=== PATIENT | female | born 1945 | race Caucasian/White ===

== ENCOUNTER → 2020-03-12 | Outpatient (CLI) | payer MEDICARE | LOC: CARD 11:00 | PROVIDERS: ATTEND Family Medicine | DX: I51.7 Cardiomegaly (principal) | CPT/HCPCS: 93306 ==

== ENCOUNTER → 2021-04-04 | Outpatient (CLI) | payer MEDICARE ==
[~2021-04-04] MED LIST: CATHETER FLUSH 10 ML SYR IV PRN; HOLD METFORMIN - RECEIVED CONTRAST 20 ML VIAL IV SCH; IOHEXOL 350 MG/ML 100 ML (OMNIPAQUE 350) VIAL IV ONE; NS 100 ML (IVPB) BAG IV ONE
[2021-04-04 09:36] LABS: CREATININE SERUM 0.65 MG/DL (0.60-1.30); POTASSIUM 4.3 MMOL/L (3.6-5.0)
[2021-04-04 09:37] LABS: ALBUMIN 3.7 GM/DL (3.2-4.5); BILIRUBIN,TOTAL 0.7 MG/DL (0.1-1.0); TOTAL PROTEIN 6.3 GM/DL (6.4-8.2)
--- NOTE | 2021-04-04 12:52 | Diagnostic Imaging Report ---
EXAMINATION: CT chest with intravenous contrast. TECHNIQUE: Multiple contiguous axial images were obtained through the chest after the uneventful administration of intravenous contrast. All CT scans use one or more of the following dose optimizing techniques: automated exposure control, MA and/or KvP adjustment based on patient size and exam type or iterative reconstruction. HISTORY: Abnormal chest radiograph. COMPARISON: None available. FINDINGS: There is no edema or pneumonia. No pleural effusion. No pneumothorax. There is a 2.0 x 2.0 cm left lower lobe pulmonary nodule. There is no axillary or supraclavicular lymphadenopathy. There is a 1.2 cm left hilar lymph node. Heart size is normal. There are severe coronary artery calcifications. No pericardial effusion. Aorta is normal in caliber. Limited views of the upper abdomen are unremarkable. There are no suspicious osseus lesions. IMPRESSION: Left lower lobe 2.0 cm nodule with an enlarged left hilar lymph node. Findings highly concerning for lung malignancy. Biopsy or PET/CT is recommended. Dictated by: Dictated on workstation # [id number]
== END ==
LOC: RAD FS 08:45
PROVIDERS: ATTEND Family Medicine
DX: R91.1 Solitary pulmonary nodule (principal); R59.0 Localized enlarged lymph nodes
CPT/HCPCS: 36415; 71260; 80053

== ENCOUNTER → 2021-05-03 | Outpatient (CLI) | payer MEDICARE ==
--- NOTE | 2021-05-03 16:56 | Diagnostic Imaging Report ---
INDICATION: Lung nodule. Serum blood glucose levels at time of injection are 102 mg/dL. Patient was administered 13.4 mCi F-18 FDG intravenously in the right wrist and whole body PET imaging was performed. Noncontrast CT was also performed for attenuation correction and anatomic correlation. No prior PET/CT studies are available for comparison. Comparison is made with a recent CT chest from 04/04/2021. There is symmetric activity throughout the brain. Soft tissues of the neck are unremarkable. Recently noted soft tissue nodule in the left lower lobe does show low level activity at approximately 2.6 SUV max. In addition, the left hilar lymph nodes described previously show very low level activity as well with SUV max of approximately 2.6. No other regions of thoracic uptake are identified. There is physiologic activity throughout the gastrointestinal and genitourinary tracts of the abdomen and pelvis. Bilateral lower extremities are unremarkable. IMPRESSION: Whole-body PET/CT study does show very low level activity within the mass in the left lower lobe as well as left hilar lymph nodes described on a recent CT chest study. Imaging features still remain somewhat concerning. This could potentially be on an infectious or inflammatory basis. Perhaps the patient could be started on an antibiotic course and a repeat chest CT in a short interval could be performed in approximately 3-4 weeks to evaluate for potential resolution of left lower lobe opacity. If this persists, consideration could be given to percutaneous biopsy. Dictated by: Dictated on workstation # [id number]
== END ==
LOC: RAD 12:45
PROVIDERS: ATTEND Family Medicine
DX: E04.1 Nontoxic single thyroid nodule (principal); R91.1 Solitary pulmonary nodule
CPT/HCPCS: 78816; A9552

== ENCOUNTER → 2021-06-03 | Outpatient (CLI) | payer MEDICARE ==
[~2021-06-03] MED LIST changes: -IOHEXOL 350 MG/ML 100 ML (OMNIPAQUE 350) VIAL IV ONE; +IOHEXOL 350 MG/ML 150 ML (OMNIPAQUE 350) VIAL IV ONE
[2021-06-03 15:31] LABS: POTASSIUM 4.1 MMOL/L (3.6-5.0)
[2021-06-03 15:32] LABS: ALBUMIN 4.4 GM/DL (3.2-4.5); BILIRUBIN,TOTAL 0.4 MG/DL (0.1-1.0); CALCIUM 9.1 MG/DL (8.5-10.1); CREATININE SERUM 0.59 MG/DL (0.60-1.30); TOTAL PROTEIN 6.4 GM/DL (6.4-8.2)
--- NOTE | 2021-06-03 16:24 | Diagnostic Imaging Report ---
EXAMINATION: CT chest with intravenous contrast. TECHNIQUE: Multiple contiguous axial images were obtained through the chest after the uneventful administration of intravenous contrast. All CT scans use one or more of the following dose optimizing techniques: automated exposure control, MA and/or KvP adjustment based on patient size and exam type or iterative reconstruction. HISTORY: Lung nodule. COMPARISON: 04/04/2021. FINDINGS: There is no edema or pneumonia. No pleural effusion. No pneumothorax. The left lower lobe nodule is decreased in size measuring 7 mm, previously 20 x 20 mm. No new nodules are seen. There is no axillary or supraclavicular lymphadenopathy. There is no mediastinal lymphadenopathy. Heart size is normal. There are severe coronary artery calcifications. No pericardial effusion. Aorta is normal in caliber. Limited views of the upper abdomen are unremarkable. There are no suspicious osseus lesions. IMPRESSION: Significant decrease in size of left lower lobe pulmonary nodule. Dictated by: Dictated on workstation # [id number]
== END ==
LOC: LAB FS 14:18
PROVIDERS: ATTEND Family Medicine
DX: I10 Essential (primary) hypertension (principal); R93.89 Abnormal findings on diagnostic imaging of other specified body structures
CPT/HCPCS: 36415; 71260; 80053

== ENCOUNTER → 2022-04-05 | Outpatient (CLI) | payer MEDICARE ==
[~2022-04-05] MED LIST changes: -CATHETER FLUSH 10 ML SYR IV PRN; +CATHETER FLUSH 10 ML SYR IVP PRN; -HOLD METFORMIN - RECEIVED CONTRAST 20 ML VIAL IV SCH; -IOHEXOL 350 MG/ML 150 ML (OMNIPAQUE 350) VIAL IV ONE; -NS 100 ML (IVPB) BAG IV ONE; +REGADENOSON 0.4 MG/5 ML SYR (LEXISCAN) IV ONE
[2022-04-05 09:54] VITALS: BP 157/72
--- NOTE | 2022-04-05 16:02 | Cardiology Stress Test Report ---
Stress Test Report Date of Procedure/Referring: Date of Procedure: Apr 05, 2022 PCP Hemalatha Munson MD Admitting Physician Admitting Physician: Attending Physician: Kalee Avalos MD Baseline Heart Rate: 62 Baseline Blood Pressure: Blood Pressure Systolic: 157 Blood Pressure Diastolic: 72 Baseline Vitals Vital Signs Date Time Temp Pulse Resp B/P (MAP) Pulse Ox O2 Delivery O2 Flow Rate FiO2 04/05/22 09:54 94 19 157/72 (100) Baseline EKG: Baseline EKG: NSR Summary After explaining the procedure to the patient, she signed a consent and then brought to the stress nuclear laboratory. Patient received 0.4 mg Lexiscan for stress test, ECG, heart rate and blood pressure were monitored continuously. Resting and stress dose of radio tracer were injected, imaging was acquired and reviewed in short axis, horizontal long axis and vertical long axis views. TID: 1.04 SSS: 10 SDS: 6 EF: 56 1. Patient tolerated Lexiscan well 2. Minimal nondiagnostic EKG changes with Lexiscan injection with frequent PVCs noted late in the test. 3. Reversible ischemia involving the anterior wall and anterolateral wall 4. Normal left ventricular size, ejection fraction 56% Copy Copies To 1: HEMALATHA MUNSON MD, BASHAR J MD Apr 05, 2022 16:02
== END ==
LOC: CARD 08:07
PROVIDERS: ATTEND Internal Medicine Cardiovascular Disease
DX: I25.89 Other forms of chronic ischemic heart disease (principal); I10 Essential (primary) hypertension
CPT/HCPCS: 78452; 93017; A9502

== ENCOUNTER 2022-04-26 09:00 | Day surgery (SDC) | payer MEDICARE ==
[~2022-04-26] VITALS: Ht 152.4 cm; Wt 60.5 kg
[2022-04-26] VITALS (13 sets, daily range): BP systolic 76–201; BP diastolic 50–90
[2022-04-26 07:26] LABS: HEMATOCRIT 43 % (35-52); HEMOGLOBIN 14.5 g/dL (11.5-16.0); MEAN CORPUSCULAR HEMOGLOBIN 30 pg (25-34); MEAN CORPUSCULAR HGB CONC 34 g/dL (32-36); MEAN CORPUSCULAR VOLUME 88 fL (80-99); MEAN PLATELET VOLUME 9.6 fL (9.0-12.2); PLATELET COUNT 258 10^3/uL (130-400); WHITE BLOOD COUNT 5.7 10^3/uL (4.3-11.0)
[2022-04-26 07:28] LABS: BILIRUBIN,URINE NEGATIVE (NEGATIVE); CLARITY,URINE CLEAR; COLOR,URINE YELLOW; GLUCOSE, URINE (UA) NEGATIVE (NEGATIVE); KETONES,URINE NEGATIVE (NEGATIVE); LEUKOCYTE ESTERASE ,URINE TRACE (NEGATIVE); NITRITE,URINE NEGATIVE (NEGATIVE); PROTEIN,URINE NEGATIVE (NEGATIVE)
[2022-04-26 07:35] LABS: BACTERIA,URINE NEGATIVE /HPF; SQUAMOUS EPITHELIAL CELL,UR 0-2 /HPF; WBC,URINE 0-2 /HPF
[2022-04-26 07:43] LABS: INR 0.9 (0.8-1.4); PROTHROMBIN TIME PATIENT 12.6 SEC (12.2-14.7)
[2022-04-26 07:48] LABS: ALBUMIN 4.3 GM/DL (3.2-4.5); BILIRUBIN,TOTAL 0.6 MG/DL (0.1-1.0); CALCIUM 9.3 MG/DL (8.5-10.1); CREATININE SERUM 0.7 MG/DL (0.60-1.30); TOTAL PROTEIN 6.7 GM/DL (6.4-8.2)
--- NOTE | 2022-04-26 07:56 | Diagnostic Imaging Report ---
HISTORY: Abnormal stress test COMPARISON: CT from 06/03/2021 TECHNIQUE: Frontal view the chest FINDINGS: Lung volumes are normal. No consolidation is seen. There is no pleural effusion or pneumothorax. The cardiac silhouette is normal in size. IMPRESSION: 1. No acute pulmonary abnormality. Dictated by: Dictated on workstation # [id number]
--- NOTE | 2022-04-26 08:20 | Cardiac Procedure Note-CS/ASA ---
Pre-Procedure Note Pre-Op Procedure Note Date of Available H&P: Apr 06, 2022 Date H&P Reviewed: Apr 26, 2022 Time H&P Reviewed: 08:20 History & Physical: H&P Reviewed, Patient Examed, No changes noted Pre-Operative Diagnosis: CAD Conscious Sedation Pre-Proced Time 08:20 ASA Score 3 For ASA 3 and 4: Consider anesthesia and medical clearance. Also, for patients with a history of failed moderate sedation consider anesthesia. Airway Lungs Heart ASA score ASA 1: a normal healthy patient ASA 2: a patient with a mild systemic disease (mid diabetes, controlled hypertension, obesity ASA 3: a patient with a severe systemic disease that limits activity (angina, COPD, prior Myocardial infarction) ASA 4: a patient with an incapacitating disease that is a constant threat to life (CHF, renal failure) ASA 5: a moribund patient not expected to survive 24 hrs. (ruptured aneurysm) ASA 6: a declared brain- patient whose organs are being harvested. For emergent operations, add the letter E after the classification Mallampati Classification Grade 3 Sedation Plan Analgesia, Amnesia, Plan communicated to team members, Discussed options with patient/fam, Discussed risks with patient/fam The patient is an appropriate candidate to undergo the planned procedure, sedation, and anesthesia. The patient immediately re-assessed prior to indication. FRENCH GRIFFITH MD Apr 26, 2022 08:20
[~2022-04-26 09:00] MED LIST changes: +ACET325C7 PO; +APIX2.5T PO; +CARV6.252 PO; -CATHETER FLUSH 10 ML SYR IVP PRN; +CETI10TA49 PO; +CLOP-31 PO; +EZET10TA49 PO; +FLUT9.9S NSEACH; +HEParin (CATH LAB) 2,000 ML IV ONE; +HYDR-3923 PO; +LACT1CAP39 PO; +LIDOCAINE 1% INJ 30 ML (XYLOCAINE) VIAL ONE; +MIDAZOLAM 5 MG/5 ML (VERSED) VIAL ONE; +MULT-1076 PO; +NS IV 1000 ML 1,000 ML IV SCH; +NS IV 1000 ML 1,000 ML ONE; +OPTIVE OP; +PATADAY OP; -REGADENOSON 0.4 MG/5 ML SYR (LEXISCAN) IV ONE; +fentaNYL INJ 100 MCG/2 ML AMP ONE
[2022-04-26] MEDS ORDERED: HEParin 1000 UNIT/ML (10ML VIAL) FOR BOLUS ONE (09:01)
[2022-04-26] MEDS ORDERED: NITRO DRIP 25000 MCG/D5W 250 ML IV ONE (09:01)
[2022-04-26] MEDS ORDERED: CLOPIDOGREL 300 MG (PLAVIX) TABLET PO ONE (09:42)
[2022-04-26] MEDS ORDERED: ASPIRIN 325 MG (5 GR) TABLET ONE (09:42)
[2022-04-26] MEDS ORDERED: NON-FORMULARY MEDICATION 1 EA EA (Cetirizine HCl (Zyrtec) 10 MG) PO SCH (10:00)
[2022-04-26] MEDS ORDERED: PATIENT MAY USE OWN MEDS, ALL PO SCH (10:00)
[2022-04-26] MEDS ORDERED: ACETAMINOPHEN 325 MG PO SCH (10:00)
--- NOTE | 2022-04-26 10:06 | Cardiac Cath Report ---
Cardiac Cath Report Physician (s)/Custom Stock Maker (s) Physician FRENCH GRIFFITH MD Pre-Procedure Diagnosis Pre-Procedure Diagnosis: CAD Post-Procedure Note Procedure Start Date: Apr 26, 2022 Name of Procedure: Left heart catheterization PTCA to the LAD PTCA to the right coronary artery Findings/Procedure Note PROCEDURE NOTE: 76-year-old lady with history of coronary artery disease, multiple interventions in the past, underwent stress test which was abnormal with anterior wall ischemia, she was scheduled for cardiac catheterization possible PTCA. After explaining the procedure to the patient, all pros and cons were explained, all questions were answered. The patient signed the consent and then she was placed in the cardiac catheterization laboratory. Groin was prepped in SL fashion local anesthesia was used. Sheath placed in the right femoral artery. Wally' right and left catheter were used to access the coronary system. Pigtail was used to access the left ventricular cavity. Left ventriculogram not done, pressure was measured Patient received 5000 units of heparin, EBU 3.5 guide was advanced to the left main, patient has 80% in-stent restenosis in the LAD. Balloon angioplasty was done using noncompliant trek 3 x 25 mm with multiple inflation within the stent with excellent results and no residual stenosis. 0% residual stenosis with FELICITAS-3 flow postintervention. Right coronary artery has patent stent in the proximal and mid, distally at the bifurcation point there is a 95% stenosis involving the ostium of diagonal and posterior lateral branch. BMW wire was advanced with Wally right guide and parked in the posterior lateral branch, balloon angioplasty using 2 x 20 trek balloon with 1 inflation with excellent results and 0% residual stenosis. The ostium of the posterior lateral branch has 95% stenosis. I was unable to advance the BMW wire to the posterior lateral branch, I attempted with whisper extra-support wire without success subsequently I stopped at that point. At the end of the procedure the sheath was removed. Closure device was deployed FINDINGS: Hemodynamics LV 170/20, end-diastolic 20 Aorta 151/61 mean of 96 ANATOMY: Left Main is free of obstructive disease Left Anterior Descending has multiple stent at the proximal and mid LAD with 80% in-stent restenosis, successful balloon angioplasty with 0% residual stenosis. Left Circumflex is moderate in size with calcification, no obstructive disease Right Coronary Artery is dominant artery, has patent stent in the proximal and mid and distal right coronary artery. 95% stenosis at the distal right coronary artery at the ostium of the posterior lateral branch with successful balloon angioplasty using 2 x 20 trek balloon with 0% residual stenosis and FELICITAS-3 flow postintervention. The ostium of the posterior lateral branch has 95% stenosis, I was unable to cross that lesion. LV Gram was not done, pressure was measured PERCUTANEOUS INTERVENTION: LAD Pre stenosis 80% Post Stenosis 0% Pre FELICITAS flow 2 Post FELICITAS flow 3 RCA Prestenosis 95% Post stenosis 0% Pre-FELICITAS flow 2 Post FELICITAS flow 3 Dominance right coronary artery CONCLUSION: 1. Severe in-stent restenosis in the proximal and mid LAD with successful balloon angioplasty using noncompliant trek balloon 3 x 25 mm with excellent results 2. 95% distal right coronary artery stenosis at the bifurcation, involving the diagonal artery with successful balloon angioplasty using 2 x 20 balloon with 0% residual stenosis, the lesion involve the ostium of a posterior lateral branch that was 95% stenosis, I was unable to cross that lesion. 3. Severe hypertension with elevated left ventricular end-diastolic pressure DISCUSSION AND RECOMMENDATION: Continue to maximize medical therapy, patient has allergy to statin, intolerant to statin. Continue on aspirin and Plavix Anesthesia Type: Conscious Sedation Estimated blood loss (mL): 30 ml Contrast Amount: 139 ml Total Radiation Dose: 514 mGy Post-Procedure Diagnosis Post-operative diagnosis: Chest pain Coronary artery disease Hypertension Hyperlipidemia. FRENCH GRIFFITH MD Apr 26, 2022 10:06
[2022-04-26] MEDS ORDERED: ATROPINE INJ 0.4 MG/ML SDV ONE (10:51)
[2022-04-26] MEDS: NS IV 1000 ML 1,000 ML IV SCH ×2 (10:58→22:41)
[2022-04-26] MEDS ORDERED: LORATADINE (CLARITIN) 10 MG TAB PO PRN (11:00)
[2022-04-26] MEDS ORDERED: PANTOPRAZOLE 40 MG (PROTONIX) TAB PO ONE (11:45)
[2022-04-26] MEDS ORDERED: CALCIUM CARBONATE 500 MG (TUMS) TAB.CHEW PO PRN (11:45)
[2022-04-26] MEDS: hydrALAZINE (APRESOLINE) 25 MG TAB PO SCH (20:08)
[2022-04-26] MEDS: APIXABAN 2.5 MG (ELIQUIS) TABLET PO SCH (20:09)
[2022-04-26] MEDS ORDERED: fentaNYL INJ 100 MCG/2 ML AMP ONE (21:04)
[2022-04-26] MEDS ORDERED: ONDANSETRON 4 MG/2 ML (SDV) Z0FRAN ONE (21:04)
[2022-04-26] MEDS ORDERED: oxyCODONE/APAP 5/325MG (PERCOCET 5) TABLET PO PRN ×2 (21:15→23:00)
[2022-04-26] MEDS ORDERED: fentaNYL INJ 100 MCG/2 ML AMP IVP ONE (21:15)
[2022-04-26] MEDS ORDERED: ONDANSETRON 4 MG/2 ML (SDV) Z0FRAN IVP PRN (21:15)
[2022-04-26] MEDS ORDERED: oxyCODONE/APAP 5/325MG (PERCOCET 5) TABLET ONE (22:32)
[2022-04-27] VITALS: BP 129/63
[2022-04-27 03:49] VITALS: BP 112/55
[2022-04-27] MEDS: NS IV 1000 ML 1,000 ML IV SCH ×2 (05:35→16:20)
[2022-04-27 06:23] LABS: HEMATOCRIT 32 % (35-52); HEMOGLOBIN 10.6 g/dL (11.5-16.0); MEAN CORPUSCULAR HEMOGLOBIN 30 pg (25-34); MEAN CORPUSCULAR HGB CONC 33 g/dL (32-36); MEAN CORPUSCULAR VOLUME 91 fL (80-99); MEAN PLATELET VOLUME 9.9 fL (9.0-12.2); PLATELET COUNT 187 10^3/uL (130-400)
[2022-04-27 06:43] LABS: CALCIUM 8.3 MG/DL (8.5-10.1); CREATININE SERUM 0.65 MG/DL (0.60-1.30); POTASSIUM 4.2 MMOL/L (3.6-5.0)
[2022-04-27 08:00] VITALS: BP 118/51
[2022-04-27] MEDS: hydrALAZINE (APRESOLINE) 25 MG TAB PO SCH (08:35)
[2022-04-27] MEDS ORDERED: PANTOPRAZOLE 40 MG (PROTONIX) TAB PO SCH (09:00)
[2022-04-27] MEDS ORDERED: eZETimibe 10 MG (ZETIA) TABLET PO SCH (09:00)
[2022-04-27] MEDS ORDERED: FLUTICASONE NASAL SPRAY (FLONASE) 16 GM BTL NS SCH (09:00)
[2022-04-27] MEDS ORDERED: MULTIVIT W/MINERALS TAB (THERAGRAN M) PO SCH (09:00)
[2022-04-27] MEDS ORDERED: LACTOBACILLUS ACIDOPHILUS (PROBIOTIC) CAPSULE PO SCH (09:00)
[2022-04-27] MEDS ORDERED: CLOPIDOGREL 75 MG (PLAVIX) TABLET PO SCH (09:00)
[2022-04-27] MEDS ORDERED: OPTIVE OP SCH (09:00)
[2022-04-27] MEDS ORDERED: PATADAY OP SCH (09:00)
[2022-04-27] MEDS ORDERED: ASPIRIN E.C. 81 MG (ECOTRIN) TAB PO SCH (09:00)
[2022-04-27 11:44] VITALS: BP 144/66
[2022-04-27] MEDS ORDERED: PANT40TA52 PO (11:56)
[2022-04-27] MEDS ORDERED: ASPI-1238 PO (11:56)
--- NOTE | 2022-04-27 11:57 | Discharge Inst-Post CATH ---
Discharge Inst-CATH/EP Problems Reviewed?: Yes Post Cardiac Cath/EP D/C Inst Follow Up/Plan Appointment with Dr. Avalos's office in 2 to 4 weeks <b>CARDIAC CATH/EP PROCEDURE DISCHARGE INSTRUCTIONS</b> ACTIVITY * Go Home directly and rest. * Limit activity of the leg (or wrist if it was used) for 7 days including aer obics, swimming, jogging, bicycling, etc. * Restrict stair-climbing for 7 days if possible, if not, climb up with your non-cath leg, then bring together on the same step. * Avoid lifting, pushing, pulling or excessive movement of the affected extremi ty for 7 days. * Customary sexual activity may be resumed after 2 days-use caution not to use a position that strains or causes pain to the affected extremity. * No driving for 24 hours. * NO SMOKING. * Avoid straining for bowel movements for 7 days. * Gentle walking on level ground is allowed. * Returning to work will depend on the type of procedure and the results. Your doctor will discuss this with you. CALL YOUR DOCTOR FOR ANY OF THE FOLLOWING: *If bleeding from the puncture site occurs- Apply gentle pressure to site with clean cloth and call your doctor or EMS. * If a knot or lump forms under the skin, increases in size, or causes pain. * If bruising appears to be worsening or moving further down your leg instead of disappearing. * Temperature above 101 F. CARE OF YOUR GROIN INCISION; * Bruising or purple discoloration of the skin near the puncture site is common. * You may shower only, no bathtub bathing for 5 days. Be careful to avoid slipping as your leg may feel stiff. * If a closure device was used on your femoral artery, please see the attached guide regarding care of the device and your leg. * Leave dressing on FOR 24 hours. CARE OF YOUR WRIST INCISION; * Bruising or purple discoloration of the skin near the puncture site is common. * You may shower. * DO NOT submerge wrist. * Leave dressing on FOR 24 hours. FRENCH AVALOS MD Apr 27, 2022 11:56
--- NOTE | 2022-04-27 13:13 | Diagnostic Imaging Report ---
Indication: Hematoma. Right common femoral artery and vein patent and showed normal directional flow. No adjacent fluid collection, mass effect or hematoma. There were no findings of AV fistula and there is no evidence for pseudoaneurysm. Impression: No findings to suggest post catheterization complication to the right groin. Dictated by: Dictated on workstation # [id number]
--- NOTE | 2022-04-27 13:17 | Cardiology Progress Note ---
Subjective Date Seen by Provider: Apr 27, 2022 Time Seen by Provider: 13:15 Subjective/Events-last exam Patient is laying down in bed, feeling better. Groin is healing better Review of Systems General: No Chills, No Night Sweats, No Fatigue, No Malaise, No Appetite, No Other HEENT: No Head Aches, No Visual Changes, No Eye Pain, No Ear Pain, No Dysphasia, No Sinus Congestion, No Post Nasal Drip, No Sore Throat, No Other Pulmonary: No Dyspnea, No Cough, No Pleuritic Chest Pain, No Other Cardiovascular: No: Chest Pain, Palpitations, Orthopnea, Paroxysmal Noc. Dyspnea, Edema, Lt Headedness, Other Objective-Cardiology Exam Last Set of Vital Signs Vital Signs 04/27/22 04/27/22 08:00 11:44 Temp 36.4 Pulse 65 Resp 14 B/P (MAP) 144/66 (92) Pulse Ox 98 O2 Delivery Room Air O2 Flow Rate 2.00 I&O Intake and Output 04/26/22 23:59 Intake Total 1600 ml Output Total 500 ml Balance 1100 ml Intake Oral 600 ml IV Total 1000 ml Output Urine Total 500 ml General: Alert, Oriented X3, Cooperative HEENT: Atraumatic, PERRLA Neck: Supple, No JVD, No Thyromegaly Lungs: Clear to Auscultation, Normal Air Movement Heart: Regular Rate, Normal S1, Normal S2, No Murmurs Abdomen: Normal Bowel Sounds, Soft, No Tenderness, No Hepatosplenomegaly, No Masses Extremities: No Clubbing, No Cyanosis, No Edema, Normal Pulses, No T enderness/Swelling Skin: No Rashes, No Breakdown, No Significant Lesion Neuro: Normal Gait, Normal Speech, Strength at 5/5 X4 Ext, Normal Tone, Sensation Intact Psych/Mental Status: Mental Status NL, Mood NL Results Lab Laboratory Tests 04/27/22 05:52 A/P-Cardiology Admission Diagnosis Coronary artery disease Hypertension Hyperlipidemia Paroxysmal atrial fibrillation Assessment/Plan Coronary artery disease, multiple intervention Last cardiac catheterization was done on April 26, 2022 with severe in-stent restenosis in the proximal and mid LAD with successful angioplasty using noncompliant trek balloon 3 x 25 with excellent results 95% stenosis at the distal right coronary artery at the bifurcation point, balloon angioplasty using 2 x 20 mm balloon to the distal right coronary artery and right posterior descending branch. There was a lesion at the ostium of the posterior lateral branch 95% stenosis was unable to cross that area. Continue on aspirin and Plavix and Eliquis Paroxysmal atrial fibrillation maintained on Eliquis Hypertension, controlled on current medication continue to monitor Hyperlipidemia, continue current medication Right groin hematoma, site appears to be healed well, having discomfort in the area. Ultrasound was done and initial review did not show any pseudoaneurysm. I am waiting for the official review FRENCH GRIFFITH MD Apr 27, 2022 13:17
[2022-04-27] MEDS: APIXABAN 2.5 MG (ELIQUIS) TABLET PO SCH (13:38)
[2022-04-28] MEDS ORDERED: CEPH500T PO (09:23)
== END 2022-04-27 16:16 | disposition home or self-care (01) ==
LOC: CATH 09:00 → CSD 10:14 → CATH 04-27 16:16
PROVIDERS: ATTEND Internal Medicine Cardiovascular Disease
DX: I25.10 Atherosclerotic heart disease of native coronary artery without angina pectoris (principal); I10 Essential (primary) hypertension; E78.5 Hyperlipidemia, unspecified; Z79.01 Long term (current) use of anticoagulants; Z86.73 Personal history of transient ischemic attack (TIA), and cerebral infarction without residual deficits; I35.0 Nonrheumatic aortic (valve) stenosis; Z86.711 Personal history of pulmonary embolism; Z86.718 Personal history of other venous thrombosis and embolism; E78.2 Mixed hyperlipidemia; I65.23 Occlusion and stenosis of bilateral carotid arteries; Z79.899 Other long term (current) drug therapy
CPT/HCPCS: 71045; 80048; 80053; 80061; 81000; 85027 ×2; 85610; 85730; 87081; 92920; 92921; 93005 ×2; 93458; 93926; C1725 ×2; C1760; C1769 ×2; C1887 ×2; C1894; 36415

== ENCOUNTER 2022-04-28 08:29 | Emergency (ER) | payer MEDICARE ==
[~2022-04-28] VITALS: Ht 152.4 cm; Wt 59.9 kg
[~2022-04-28 08:29] MED LIST changes: +ASPI-1238 PO; -HEParin (CATH LAB) 2,000 ML IV ONE; -LIDOCAINE 1% INJ 30 ML (XYLOCAINE) VIAL ONE; -MIDAZOLAM 5 MG/5 ML (VERSED) VIAL ONE; -NS IV 1000 ML 1,000 ML IV SCH; -NS IV 1000 ML 1,000 ML ONE; +PANT40TA52 PO; -fentaNYL INJ 100 MCG/2 ML AMP ONE
[2022-04-28] MEDS ORDERED: MUPIROCIN 2% OINT 22 GM (BACTROBAN) TUBE ONE (09:14)
--- NOTE | 2022-04-28 09:14 | ED General ---
General Chief Complaint: Lower Extremity Stated Complaint: RT LEG STIFFNESS Nursing Triage Note: Patient reports she had a heart cath on Sunday at [facility] with Dr. Avalos. She states she was discharged to home yesterday and has had increased stiffness, bruising, and soreness in her right groin/leg and that she feels lump in her right groin. Source of Information: Patient, Old Records Exam Limitations: No Limitations History of Present Illness Date Seen by Provider: Apr 28, 2022 Time Seen by Provider: 08:50 Initial Comments This is 76-year-old woman presents to the emergency room with concerns about pain, swelling, and erythema at her cath site. She had angiography and a ngioplasty performed by Dr. Avalos on April 26 and was dismissed yesterday. Ultrasound of the right groin was performed prior to dismissal. There were no hematomas or pseudoaneurysms noted on the ultrasound. Patient denies fever. She reports feeling a lump in this area which is not appreciated by this examiner. She thinks the area feels more stiff and sore than it did yesterday. She is afebrile. She reports bleeding complications after the procedure. She is not actively bleeding at present. Allergies and Home Medications Allergies Coded Allergies: amoxicillin (Verified Allergy, Unknown, 04/26/22) atorvastatin (Verified Allergy, Unknown, 04/26/22) clavulanic acid (Verified Allergy, Unknown, 04/26/22) doxycycline (Verified Allergy, Unknown, 04/26/22) erythromycin base (Verified Allergy, Unknown, 04/26/22) lovastatin (Verified Allergy, Unknown, 04/26/22) metronidazole (Verified Allergy, Unknown, 04/26/22) Patient Home Medication List Home Medication List Reviewed: Yes Acetaminophen (Tylenol) 325 Mg Capsule, 325 MG PO PRN, (Reported) Entered as Reported by: RUBEN HIGHTOWER on 04/26/22 0744 Apixaban (Eliquis) 2.5 Mg Tablet, 2.5 MG PO BID, (Reported) Entered as Reported by: RUBEN HIGHTOWER on 04/26/22 0744 Aspirin (Aspirin EC) 81 Mg Tablet., 81 MG PO DAILY Prescribed by: FRENCH AVALOS on 04/27/22 1156 Carvedilol (Carvedilol) 6.25 Mg Tablet, 6.25 MG PO BID, (Reported) Entered as Reported by: RUBEN HIGHTOWER on 04/26/22743 Cephalexin (Cephalexin) 500 Mg Tablet, 500 MG PO TID Prescribed by: MANUELA NAGEL on 04/28/22922 Cetirizine HCl (Zyrtec) 10 Mg Tablet, 10 MG PO PRN, (Reported) Entered as Reported by: RUBEN HIGHTOWER on 04/26/22743 Clopidogrel Bisulfate (Plavix) 75 Mg Tablet, 75 MG PO DAILY, (Reported) Entered as Reported by: RUBEN HIGHTOWER on 04/26/22743 Ezetimibe (Ezetimibe) 10 Mg Tablet, 10 MG PO DAILY, (Reported) Entered as Reported by: URBEN HIGHTOWER on 04/26/22743 Fluticasone Propionate (Flonase Allergy Relief) 50 Mcg/Actuation [place].susp, 1 SPRAY NSEACH DAILY, (Reported) Entered as Reported by: RUBEN HIGHTOWER on 04/26/22743 Hydralazine HCl (Hydralazine HCl) 25 Mg Tablet, 25 MG PO BID, (Reported) Entered as Reported by: RUBEN HIGHTOWER on 04/26/22743 Lactobacillus Rhamnosus GG (Culturelle) 10 Billion Cell Capsule, 1 EACH PO DAILY, (Reported) Entered as Reported by: RUBEN HIGHTOWER on 04/26/22744 Multivitamin/Iron/Folic Acid (Multivitamin with Iron Tablet) 18 Mg Iron-400 Mcg Tablet, 1 EACH PO DAILY, (Reported) Entered as Reported by: RUBEN HIGHTOWER on 04/26/22743 Pantoprazole Sodium (Pantoprazole Sodium) 40 Mg Tablet.dr, 40 MG PO DAILY Prescribed by: FRENCH AVALOS on 04/27/22 1156 [Optive] , 1 DROP OP DAILY, (Reported) Entered as Reported by: RUBEN HIGHTOWER on 04/26/22743 [Pataday] , 1 DROP OP DAILY, (Reported) Entered as Reported by: RUBEN HIGHTOWER on 04/26/22743 Review of Systems Review of Systems Constitutional: no symptoms reported EENTM: no symptoms reported Respiratory: no symptoms reported Cardiovascular: see HPI Gastrointestinal: no symptoms reported Genitourinary: no symptoms reported Musculoskeletal: no symptoms reported Skin: see HPI Psychiatric/Neurological: No Symptoms Reported Hematologic/Lymphatic: No Symptoms Reported Past Fhdkcet-Dkyrku-Bxfgze Hx Patient Social History Tobacco Use?: No Substance use?: No Alcohol Use?: No Pt feels they are or have been: No Past Medical History Surgery/Hospitalization HX: high cholesterol, hypertension, diverticulitis Surgeries: Yes Appendectomy, Cardiac (Coronary angioplasty), Coronary Stent, Gallbladder, Hysterectomy, Tonsillectomy Respiratory: No Cardiac: Yes Coronary Artery Disease, High Cholesterol, Hypertension Neurological: No Stroke Genitourinary: No Gastrointestinal: Yes Diverticulosis, Gall Bladder Disease Musculoskeletal: No Endocrine: No HEENT: No Cancer: No Skin Psychosocial: No Integumentary: No Physical Exam Vital Signs Vital Signs - First Documented 04/28/22 08:33 Temp 36.4 Pulse 83 Resp 18 B/P (MAP) 145/60 (88) Pulse Ox 97 O2 Delivery Room Air Capillary Refill : Less Than 3 Seconds Height, Weight, BMI Height: '" Weight: lbs. oz. kg; 25.00 BMI Method: General Appearance: No Apparent Distress, WD/WN HEENT: Normal ENT Inspection Neck: No JVD Respiratory: Lungs Clear, Normal Breath Sounds, No Accessory Muscle Use Cardiovascular: Regular Rate, Rhythm, No Edema, No Murmur Gastrointestinal: Normal Bowel Sounds, Soft Extremity: Other (There is extensive bruising to the anterior proximal right thigh. The incision site appears well sealed without significant erythema, swelling, tenderness, or drainage. Superior to the incision site in the inguinal fold there is bright red skin irritation and skin breakdown, possibly excoriation. No palpable masses, fluctuance, or fullness to suggest hematoma or abscess was noted. The ecchymotic area was slightly warm to the touch. Distal exam unremarkable.) Neurologic/Psychiatric: Alert, Oriented x3, Normal Mood/Affect, engineering instructor II-XII Norm as Tested Skin: Warm/Dry, Ecchymosis, Erythema, Other (See skin exam details under extremities above) Progress/Results/Core Measures Suspected Sepsis SIRS Temperature: Pulse: 83 Respiratory Rate: 18 Blood Pressure 145 /60 Mean: 88 Results/Orders My Orders Orders - MANUELA BEEBE MD Mupirocin Ointment (Bactroban Ointment (04/28/22 21:00) Mupirocin Ointment (Bactroban Ointment (04/28/22 09:14) Fluconazole Tablet (Ed Only) (Diflucan T (04/28/22 09:30) Vital Signs/I&O 04/28/22 08:33 Temp 36.4 Pulse 83 Resp 18 B/P (MAP) 145/60 (88) Pulse Ox 97 O2 Delivery Room Air Capillary Refill : Less Than 3 Seconds Blood Pressure Mean: 88 Progress Note : Progress Note There appears to be some excoriation and bright red erythema superior to the incision site which does not seem to directly contact or affect the incision site. This area is directly in the inguinal fold. This may represent some yeast (intertrigo) or minor cellulitis where there is breakdown in the skin. Again, this appears separate from the incision site, and I am not concerned about a deeper infection involving the incision site at this time. I do not palpate any lumps, fullness, or fluctuance to suggest abscess or hematoma. No purulent drainage was visualized. The lumps the patient is feeling may be tiny lymph nodes in the inguinal region which are not appreciated by palpation by this provider. We are providing her with some topical Bactroban and some Keflex as a precaution. I will also give Diflucan x1 for additional yeast treatment for possible intertrigo. Chart from the hospitalization was reviewed including the cardiology progress note and ultrasound interpretation. Diagnostic Imaging Diagonstic Imaging: Ultrasound Plain Films/CT/US/NM/MRI: leg Comments ULTRASOUND REPORT FROM ADMIT 04/26/22: NAME: STEPHANI ESPINOZA [facility] REC#: [id number] [place]US[place] [facility] [place] 1945 PHYSICIAN: FRENCH AVALOS MD ADMIT DATE: 04/26/22/[facility] Signed Date of Exam:04/27/22 US RIGHT LOW EXT [id number] Indication: Hematoma. Right common femoral artery and vein patent and showed normal directional flow. No adjacent fluid collection, mass effect or hematoma. There were no findings of AV fistula and there is no evidence for pseudoaneurysm. Impression: No findings to suggest post catheterization complication to the right groin. Dictated by: Dictated on workstation # [id number] Dict: 04/27/22 1220 Trans: 04/27/22 1631 [facility] [id number] Interpreted by: QUITA HUTCHISON Electronically signed by: QUITA HUTCHISON 04/27/22 1631 Departure Impression Primary Impression: Skin irritation Additional Impressions: Postoperative pain Postoperative ecchymosis Disposition: HOME, SELF-CARE Condition: Stable Departure-Patient Inst. Referrals: HEMALATHA BAKER MD (PCP) Primary Care Physician Patient Instructions: Cellulitis (Skin Infection), Adult ED, Intertrigo Add. Discharge Instructions: There is an area above your incision site in the fold of your groin where your skin is irritated. Treat that area with the Bactroban (mupirocin) ointment with a thin layer twice daily. Avoid rubbing or scratching this area. You are also being prescribed an antibiotic as a precaution as the skin in this area is bright red. Return to the ER if you have worsening symptoms, especially if the area of bright red skin is spreading or if you develop fever, escalating pain, or other concerning symptoms. Otherwise, follow-up with Dr. Avalos with a phone call to the clinic on Sunday. All discharge instructions reviewed with patient and/or family. Voiced understanding. Scripts Cephalexin (Cephalexin) 500 Mg Tablet 500 MG PO TID, #15 TAB Prov: MANUELA BEEBE MD 04/28/22 Copy Copies To 1: FRENCH AVALOS MD Copies To 2: HEMALATHA BAKER MD, JOSHUA T MD Apr 28, 2022 09:14
[2022-04-28] MEDS ORDERED: CEPH500T PO (09:23)
[2022-04-28] MEDS ORDERED: FLUCONAZOLE 150 MG TABLET (ED ONLY) PO ONE (09:30)
[2022-04-28 10:10] VITALS: BP 139/51
[2022-04-28] MEDS ORDERED: MUPIROCIN 2% OINT 22 GM (BACTROBAN) TUBE TOP SCH (21:00)
== END 2022-04-28 10:31 | disposition home or self-care (01) ==
LOC: EDUNIT# 08:29 → ER FS 08:30
DX: I97.630 Postprocedural hematoma of a circulatory system organ or structure following a cardiac catheterization (principal); G89.18 Other acute postprocedural pain; L98.9 Disorder of the skin and subcutaneous tissue, unspecified; Z98.61 Coronary angioplasty status; Z88.1 Allergy status to other antibiotic agents
CPT/HCPCS: 99283

== ENCOUNTER → 2022-05-30 | Outpatient (CLI) | payer MEDICARE ==
[~2022-05-30] MED LIST changes: +CATHETER FLUSH 10 ML SYR IV PRN; +CEPH500T PO; +HOLD METFORMIN - RECEIVED CONTRAST 20 ML VIAL IV SCH; +IOHEXOL 350 MG/ML 100 ML (OMNIPAQUE 350) VIAL IV ONE; +NS 100 ML (IVPB) BAG IV ONE
--- NOTE | 2022-05-30 11:59 | Diagnostic Imaging Report ---
EXAM: CT ANGIO NECK W INDICATION: Carotid stenosis. COMPARISON: CT chest 04/04/2021 and 06/03/2021. FINDINGS: CTA demonstrates a conventional aortic arch. Dominant right vertebral artery. There is 50-69% narrowing of the left internal carotid artery origin. 90-99% narrowing of the right internal carotid artery origin. Less than 50% narrowing of the bilateral cavernous ICAs. High-grade narrowing of the bilateral vertebral artery V4 segments. The visualized [place] is intact. Visualized dural venous sinuses are normally opacified. Mild to moderate spondylotic changes in the cervical spine. No acute osseous findings. Mastoids are clear. Visualized paravertebral soft tissues are unremarkable. 0.8 cm pulmonary nodule along left major fissure in the left upper lobe. IMPRESSION: 1. 90-99% narrowing of the right internal carotid artery origin. 2. 50-69% narrowing of the left internal carotid artery origin. 3. High-grade narrowing of the bilateral vertebral artery V4 segments. 4. New 0.8 cm pulmonary nodule in the left upper lobe along the left major fissure. Given the history of a prior lung nodule in the left lower lobe, for which the clinical history is unknown, recommend noncontrast chest CT for further evaluation. Dictated by: Dictated on workstation # [id number]
== END ==
LOC: LAB FS 10:08
DX: I65.23 Occlusion and stenosis of bilateral carotid arteries (principal); R91.1 Solitary pulmonary nodule; I65.03 Occlusion and stenosis of bilateral vertebral arteries
CPT/HCPCS: 70498

== ENCOUNTER 2022-10-22 13:00 | Emergency (ER) | payer MEDICARE ==
[~2022-10-22] VITALS: Ht 152 cm; Wt 60.0 kg
[~2022-10-22 13:00] MED LIST changes: -CATHETER FLUSH 10 ML SYR IV PRN; -HOLD METFORMIN - RECEIVED CONTRAST 20 ML VIAL IV SCH; -IOHEXOL 350 MG/ML 100 ML (OMNIPAQUE 350) VIAL IV ONE; -NS 100 ML (IVPB) BAG IV ONE
--- NOTE | 2022-10-22 13:03 | ED Chest Pain ---
General Stated Complaint: CHEST PAIN History of Present Illness Date Seen by Provider: Oct 22, 2022 Time Seen by Provider: 13:03 Initial Comments 76 yr F with PMH of 5 stents /carotid endarterectomy/ TAVR, is here with c/o chest pain which began today morning. It started between her shoulder blades and migrated to her chest. Pt rates the pain a 1/10 and comes and goes. Denies fever, SOB, palpitations, dizziness, cough. Patient states that she has been having worsening gas and heartburn over the past few days as well, and she takes Protonix daily for this. Allergies and Home Medications Allergies Coded Allergies: amoxicillin (Verified Allergy, Unknown, 04/26/22) atorvastatin (Verified Allergy, Unknown, 04/26/22) clavulanic acid (Verified Allergy, Unknown, 04/26/22) doxycycline (Verified Allergy, Unknown, 04/26/22) erythromycin base (Verified Allergy, Unknown, 04/26/22) lovastatin (Verified Allergy, Unknown, 04/26/22) metronidazole (Verified Allergy, Unknown, 04/26/22) Patient Home Medication List Home Medication List Reviewed: Yes Acetaminophen (Tylenol) 325 Mg Capsule, 325 MG PO PRN, (Reported) Entered as Reported by: RUBEN HIGHTOWER on 04/26/22 0744 Apixaban (Eliquis) 2.5 Mg Tablet, 2.5 MG PO BID, (Reported) Entered as Reported by: RUBEN HIGHTOWER on 04/26/22 0744 Aspirin (Aspirin EC) 81 Mg Tablet.dr, 81 MG PO DAILY Prescribed by: FRENCH GRIFFITH on 04/27/22 1156 Carvedilol (Carvedilol) 6.25 Mg Tablet, 6.25 MG PO BID, (Reported) Entered as Reported by: RUBEN HIGHTOWER on 04/26/22 0744 Cephalexin (Cephalexin) 500 Mg Tablet, 500 MG PO TID Prescribed by: MANUELA NAGEL on 04/28/22 0923 Cetirizine HCl (Zyrtec) 10 Mg Tablet, 10 MG PO PRN, (Reported) Entered as Reported by: RUBEN HIGHTOWER on 04/26/22 0744 Clopidogrel Bisulfate (Plavix) 75 Mg Tablet, 75 MG PO DAILY, (Reported) Entered as Reported by: RUBNE HIGHTOWER on 04/26/22743 Ezetimibe (Ezetimibe) 10 Mg Tablet, 10 MG PO DAILY, (Reported) Entered as Reported by: RUBEN HIGHTOWER on 04/26/22743 Fluticasone Propionate (Flonase Allergy Relief) 50 Mcg/Actuation [place].susp, 1 SPRAY NSEACH DAILY, (Reported) Entered as Reported by: RUBEN HIGHTOWER on 04/26/22743 Hydralazine HCl (Hydralazine HCl) 25 Mg Tablet, 25 MG PO BID, (Reported) Entered as Reported by: RUBEN HIGHTOWER on 04/26/22743 Lactobacillus Rhamnosus GG (Culturelle) 10 Billion Cell Capsule, 1 EACH PO DAILY, (Reported) Entered as Reported by: RUBEN HIGHTOWER on 04/26/22744 Multivitamin/Iron/Folic Acid (Multivitamin with Iron Tablet) 18 Mg Iron-400 Mcg Tablet, 1 EACH PO DAILY, (Reported) Entered as Reported by: RUBEN HIGHTOWER on 04/26/22743 Pantoprazole Sodium (Pantoprazole Sodium) 40 Mg Tablet.dr, 40 MG PO DAILY Prescribed by: FRENCH GRIFFITH on 04/27/22 1156 [Optive] , 1 DROP OP DAILY, (Reported) Entered as Reported by: RUBEN HIGHTOWER on 04/26/22743 [Pataday] , 1 DROP OP DAILY, (Reported) Entered as Reported by: RUBEN HIGHTOWER on 04/26/22743 Review of Systems Review of Systems Constitutional: no symptoms reported, see HPI EENTM: No Symptoms Reported Respiratory: No Symptoms Reported Cardiovascular: See HPI, Chest Pain Gastrointestinal: No Symptoms Reported Genitourinary: No Symptoms Reported Musculoskeletal: no symptoms reported Skin: no symptoms reported Psychiatric/Neurological: No Symptoms Reported Endocrine: No Symptoms Reported Hematologic/Lymphatic: No Symptoms Reported Past Yztqcjc-Adwveu-Vozfmm Hx Past Medical History Surgery/Hospitalization HX: high cholesterol, hypertension, diverticulitis Surgeries: Yes Appendectomy, Cardiac, Coronary Stent, Gallbladder, Hysterectomy, Tonsillectomy Respiratory: No Cardiac: Yes Coronary Artery Disease, High Cholesterol, Hypertension Neurological: No Stroke Genitourinary: No Gastrointestinal: Yes Diverticulosis, Gall Bladder Disease Musculoskeletal: No Endocrine: No HEENT: No Cancer: No Skin Psychosocial: No Integumentary: No Physical Exam Vital Signs Vital Signs - First Documented 10/22/22 13:05 Temp 36.5 Pulse 57 Resp 21 B/P (MAP) 179/69 (105) Pulse Ox 97 O2 Delivery Room Air Capillary Refill : Height, Weight, BMI Height: '" Weight: lbs. oz. kg; 25.00 BMI Method: General Appearance: No Apparent Distress, WD/WN HEENT: PERRL/EOMI Neck: Full Range of Motion, Normal Inspection, Non Tender, Supple Respiratory: Chest Non Tender, Lungs Clear, Normal Breath Sounds Cardiovascular: No Edema Gastrointestinal: Normal Bowel Sounds, Non Tender, Soft Extremity: Normal Range of Motion Neurologic/Psychiatric: Alert, Oriented x3 Skin: Normal Color Progress/Results/Core Measures Results/Orders Lab Results Laboratory Tests Test 10/22/22 13:08 10/22/22 13:25 Range/Units White Blood Count 9.0 4.3-11.0 10^3/uL Red Blood Count 4.75 3.80-5.11 10^6/uL Hemoglobin 13.8 11.5-16.0 g/dL Hematocrit 42 35-52 % Mean Corpuscular Volume 88 80-99 fL Mean Corpuscular Hemoglobin 29 25-34 pg Mean Corpuscular Hemoglobin Concent 33 32-36 g/dL Red Cell Distribution Width 14.3 10.0-14.5 % Platelet Count 235 130-400 10^3/uL Mean Platelet Volume 9.6 9.0-12.2 fL Immature Granulocyte % (Auto) 0 % Neutrophils (%) (Auto) 85 H 42-75 % Lymphocytes (%) (Auto) 9 L 12-44 % Monocytes (%) (Auto) 5 0-12 % Eosinophils (%) (Auto) 1 0-10 % Basophils (%) (Auto) 0 0-10 % Neutrophils # (Auto) 7.7 1.8-7.8 10^3/uL Lymphocytes # (Auto) 0.8 L 1.0-4.0 10^3/uL Monocytes # (Auto) 0.4 0.0-1.0 10^3/uL Eosinophils # (Auto) 0.1 0.0-0.3 10^3/uL Basophils # (Auto) 0.0 0.0-0.1 10^3/uL Immature Granulocyte # (Auto) 0.0 0.0-0.1 10^3/uL Prothrombin Time 13.2 12.2-14.7 SEC INR Comment 1.0 0.8-1.4 Activated Partial Thromboplast Time 26 24-35 SEC D-Dimer 0.43 0.00-0.49 UG/ML Sodium Level 138 135-145 MMOL/L Potassium Level 4.7 3.6-5.0 MMOL/L Chloride Level 103 98-107 MMOL/L Carbon Dioxide Level 26 21-32 MMOL/L Anion Gap 9 5-14 MMOL/L Blood Urea Nitrogen 13 7-18 MG/DL Creatinine 0.72 0.60-1.30 MG/DL Estimat Glomerular Filtration Rate 87 BUN/Creatinine Ratio 18 Glucose Level 110 H 70-105 MG/DL Calcium Level 9.5 8.5-10.1 MG/DL Corrected Calcium 9.5 8.5-10.1 MG/DL Magnesium Level 2.2 1.6-2.4 MG/DL Total Bilirubin 0.5 0.1-1.0 MG/DL Aspartate Amino Transf (AST/SGOT) 19 5-34 U/L Alanine Aminotransferase (ALT/SGPT) 12 0-55 U/L Alkaline Phosphatase 88 40-136 U/L Troponin I < 0.30 <0.30 NG/ML Pro-B-Type Natriuretic Peptide 375.2 <450.0 PG/ML Total Protein 6.1 L 6.4-8.2 GM/DL Albumin 4.0 3.2-4.5 GM/DL Urine Color RED H Urine Clarity CLEAR Urine pH 6.0 5-9 Urine Specific [place] 1.010 L 1.016-1.022 Urine Protein NEGATIVE NEGATIVE Urine Glucose (UA) NEGATIVE NEGATIVE Urine Ketones NEGATIVE NEGATIVE Urine Nitrite POSITIVE H NEGATIVE Urine Bilirubin NEGATIVE NEGATIVE Urine Urobilinogen 1.0 < = 1.0 MG/DL Urine Leukocyte Esterase NEGATIVE NEGATIVE Urine RBC (Auto) NEGATIVE NEGATIVE Urine RBC 5-10 H /HPF Urine WBC 10-25 H /HPF Urine Squamous Epithelial Cells 2-5 /HPF Urine Crystals NONE /LPF Urine Bacteria MODERATE H /HPF Urine Casts NONE /LPF Urine Mucus NEGATIVE /LPF Urine Culture Indicated YES Urine Opiates Screen NEGATIVE NEGATIVE Urine Oxycodone Screen NEGATIVE NEGATIVE Urine Methadone Screen NEGATIVE NEGATIVE Urine Propoxyphene Screen NEGATIVE NEGATIVE Urine Barbiturates Screen NEGATIVE NEGATIVE Ur Tricyclic Antidepressants Screen NEGATIVE NEGATIVE Urine Phencyclidine Screen NEGATIVE NEGATIVE Urine Amphetamines Screen NEGATIVE NEGATIVE Urine Methamphetamines Screen NEGATIVE NEGATIVE Urine Benzodiazepines Screen NEGATIVE NEGATIVE Urine Cocaine Screen NEGATIVE NEGATIVE Urine Cannabinoids Screen NEGATIVE NEGATIVE My Orders Orders - LISA CAR MD Continuous Ekg Monitoring (10/22/22 13:03) Ekg Tracing (10/22/22 13:03) Chest 1 View Ap/Pa Only (10/22/22 13:04) Cbc With Automated Diff (10/22/22 13:05) Comprehensive Metabolic Panel (10/22/22 13:05) Drug Screen Stat (Urine) (10/22/22 13:05) Magnesium (10/22/22 13:05) Protime With Inr (10/22/22 13:05) Partial Thromboplastin Time (10/22/22 13:05) Ua Culture If Indicated (10/22/22 13:05) Probnp Fs (10/22/22 13:05) Troponin I Fs (10/22/22 13:05) Aspirin Chewable Tablet (Baby Aspirin Ch (10/22/22 13:30) Urine Culture (10/22/22 13:25) Fibrin Degradation Products (10/22/22 14:23) Medications Given in ED Current Medications Medications Dose Ordered Sig/Olga Route Start Time Stop Time Status Last Admin Dose Admin Aspirin 324 mg ONCE ONCE PO 10/22/22 13:30 10/22/22 13:31 DC 10/22/22 13:32 324 MG Vital Signs/I&O 10/22/22 13:05 Temp 36.5 Pulse 57 Resp 21 B/P (MAP) 179/69 (105) Pulse Ox 97 O2 Delivery Room Air Progress Progress Note : Progress Note 1. ACS RULED OUT: GERD EXACERBATION - CXR: no acute findings - CBC/ CMP: unremarkable - Troponinx 2: undetectable - EKG x2: non-ischemic - D-dimer: normal - ASA 324mg STAT - Pepcid 20mg iv & Maalox suspension given in ER - Pt takes Protonix at home and advised to continue it. Also advised to add Maalox as needed for acid reflux or heartburn. Pt's symptoms improved with this. - Follow up with Transportation Worker within the next 7 days.Call for appointment. -The patient was seen in the ED, and treated appropriately to presentation at a specific point in time. Patient is informed that there is a possibility that disease and illness can evolve and change in acuity rapidly or slowly after patient is discharged from the ER. Precautionary advice given to the patient for immediate return to ER if symptoms worsen or do not resolve, and to seek emergency care sooner rather than later. Pt also advised on the importance of PCP follow up and compliance with management and follow up plan with PCP and/or specialist, as this is part of the management plan. Pt verbally expressed understanding. Initial ECG Impression Date: Oct 22, 2022 Initial ECG Impression Time: 13:05 Initial ECG Rate: 60 Initial ECG Rhythm: Normal Sinus Initial ECG Intervals: Normal Initial ECG Impression: Normal Initial ECG Comparisson: No Previous ECG Available EKG : EKG Time: 15:02 Rate: 57 Rhythm: Normal Sinus Intervals: Normal (Borderline sinus bradycardia) ECG Comparisson: Unchanged ECG Impression: Normal Diagnostic Imaging Diagonstic Imaging: Xray Plain Films/CT/US/NM/MRI: chest Comments [facility] [place] NAME: STEPHANI ESPINOZA [facility] REC#: [id number] PT STATUS: REG ER : 1945 PHYSICIAN: LISA CRA MD ADMIT DATE: 10/22/22/ER FS Draft Date of Exam:10/22/22 CHEST 1 VIEW AP/PA ONLY INDICATION: Chest pain COMPARISON: 04/26/2022 TECHNIQUE: Single radiograph of the chest dated 10/22/2022. FINDINGS: The cardiac silhouette is borderline enlarged. No significant pulmonary vascular congestion. Prosthetic aortic valve is present. Stent is noted overlying the left heart border. The lungs are clear. No pleural effusion. No pneumothorax. Scattered osseous degenerative changes without acute osseous abnormality. IMPRESSION: Borderline cardiomegaly without pulmonary vascular congestion. Prosthetic aortic valve and cardiac stent identified in place. Dictated on workstation # [id number] Dict: 10/22/22 1348 Trans: 10/22/22 1353 CVB [id number] Interpreted by: SHIELA HERNANDEZ MD Electronically signed by: Departure Impression Primary Impression: Ruled out for myocardial infarction Additional Impression: GERD (gastroesophageal reflux disease) Disposition: HOME, SELF-CARE Condition: Stable (ERASED) Departure-Patient Inst. Referrals: HEMALATHA BAKER MD (PCP/Family) Primary Care Physician Patient Instructions: Chest Pain That Is Not Caused by the Heart (DC), Heart Healthy Diet, Acid reflux and gastroesophageal reflux disease in adults Add. Discharge Instructions: - Advised to continue Protonix. Also advised to add Maalox as needed for acid reflux or heartburn. - Follow up with Transportation Worker within the next 7 days.Call for appointment. LISA CAR MD Oct 22, 2022 13:03
[2022-10-22 13:12] LABS: BASOPHILS % (AUTO) 0 % (0-10); EOSINOPHILS # (AUTO) 0.1 10^3/uL (0.0-0.3); EOSINOPHILS % (AUTO) 1 % (0-10); HEMATOCRIT 42 % (35-52); HEMOGLOBIN 13.8 g/dL (11.5-16.0); LYMPHOCYTES # (AUTO) 0.8 10^3/uL (1.0-4.0); LYMPHOCYTES % (AUTO) 9 % (12-44); MEAN CORPUSCULAR HEMOGLOBIN 29 pg (25-34); MEAN CORPUSCULAR HGB CONC 33 g/dL (32-36); MEAN CORPUSCULAR VOLUME 88 fL (80-99); MEAN PLATELET VOLUME 9.6 fL (9.0-12.2); MONOCYTES # (AUTO) 0.4 10^3/uL (0.0-1.0); MONOCYTES % (AUTO) 5 % (0-12); NEUTROPHILS # (AUTO) 7.7 10^3/uL (1.8-7.8); NEUTROPHILS % (AUTO) 85 % (42-75); PLATELET COUNT 235 10^3/uL (130-400)
[2022-10-22 13:28] LABS: PROTHROMBIN TIME PATIENT 13.2 SEC (12.2-14.7)
[2022-10-22] MEDS ORDERED: ASPIRIN 81 MG CHEW (CHILDREN'S ASA) PO ONE (13:30)
[2022-10-22 13:32] LABS: CARBON DIOXIDE 26 MMOL/L (21-32); CHLORIDE 103 MMOL/L (98-107); POTASSIUM 4.7 MMOL/L (3.6-5.0); SODIUM 138 MMOL/L (135-145)
[2022-10-22 13:33] LABS: ALANINE AMINOTRANSFERASE 12 U/L (0-55); ALKALINE PHOSPHATASE 88 U/L (40-136); BILIRUBIN,TOTAL 0.5 MG/DL (0.1-1.0); BUN/CREATININE RATIO 18; CALCIUM 9.5 MG/DL (8.5-10.1); CREATININE SERUM 0.72 MG/DL (0.60-1.30); GFR ESTIMATED 87; GLUCOSE 110 MG/DL (70-105); MAGNESIUM 2.2 MG/DL (1.6-2.4); TOTAL PROTEIN 6.1 GM/DL (6.4-8.2)
[2022-10-22 13:33] LABS: BILIRUBIN,URINE NEGATIVE (NEGATIVE); CLARITY,URINE CLEAR; GLUCOSE, URINE (UA) NEGATIVE (NEGATIVE); KETONES,URINE NEGATIVE (NEGATIVE); LEUKOCYTE ESTERASE ,URINE NEGATIVE (NEGATIVE); NITRITE,URINE POSITIVE (NEGATIVE); PROTEIN,URINE NEGATIVE (NEGATIVE)
[2022-10-22 13:37] LABS: BACTERIA,URINE MODERATE /HPF; COLOR,URINE RED
[2022-10-22 13:43] LABS: AMPHETAMINE SCREEN, URINE NEGATIVE (NEGATIVE); BARBITURATE SCREEN URINE NEGATIVE (NEGATIVE); BENZODIAZEPINES SCREEN URINE NEGATIVE (NEGATIVE); CANNABINOID SCREEN, URINE NEGATIVE (NEGATIVE); COCAINE SCREEN URINE NEGATIVE (NEGATIVE); METHADONE STAT NEGATIVE (NEGATIVE); OPIATE SCREEN URINE NEGATIVE (NEGATIVE); OXYCODONE STAT NEGATIVE (NEGATIVE); PROPOXYPHENE STAT NEGATIVE (NEGATIVE); TRICYCLIC ANTIDEPRESSANTS SCRE NEGATIVE (NEGATIVE)
--- NOTE | 2022-10-22 13:55 | Diagnostic Imaging Report ---
INDICATION: Chest pain COMPARISON: 04/26/2022 TECHNIQUE: Single radiograph of the chest dated 10/22/2022. FINDINGS: The cardiac silhouette is borderline enlarged. No significant pulmonary vascular congestion. Prosthetic aortic valve is present. Stent is noted overlying the left heart border. The lungs are clear. No pleural effusion. No pneumothorax. Scattered osseous degenerative changes without acute osseous abnormality. IMPRESSION: Borderline cardiomegaly without pulmonary vascular congestion. Prosthetic aortic valve and cardiac stent identified in place. Dictated by: Dictated on workstation # [id number]
[2022-10-22] MEDS ORDERED: FAMOTIDINE 20MG/2ML IV (PEPCID) IV STA (15:15)
[2022-10-22] MEDS ORDERED: ANTACID SUSP 30 ML UDC (MYLANTA) PO ONE (15:15)
[2022-10-22 15:25] VITALS: BP 134/57
== END 2022-10-22 15:30 | disposition home or self-care (01) ==
LOC: EDUNIT# 13:00 → ER FS 13:01
DX: K21.9 Gastro-esophageal reflux disease without esophagitis (principal); Z95.5 Presence of coronary angioplasty implant and graft
CPT/HCPCS: 36415; 71045; 80053; 80306; 81000; 83735; 83880; 84484; 85025; 85379; 85610; 85730; 87088; 93005